=== PATIENT | male | born 1955 | race Caucasian/White ===

== ENCOUNTER 2016-08-03 11:51 | Emergency (ER) | payer SELFPAY ==
[~2016-08-03] VITALS: Ht 167.6 cm; Wt 79.7 kg
[~2016-08-03 11:51] MED LIST: METH10TA6 PO; MULTTAB58 PO
[2016-08-03 11:57] VITALS: TEMP 36.9; Ht 167.6 cm; Wt 79.7 kg
[2016-08-03] MEDS ORDERED: NAPR-1007 PO (12:52)
[2016-08-03] MEDS ORDERED: TRAMADOL HCL 50 MG TAB PO STA (13:15)
[2016-08-03 13:29] LABS: BASO % 0.2 %; BASO ABS # 0.02 K/uL (0-0.2); COMPLETE YES; EOS % 0.7 %; HEMATOCRIT 43.6 % (42-52); IG% 0.1 %; LYMPH % 19.5 %; LYMPH ABS # 1.77 K/uL (1.2-3.4); MEAN CELL VOLUME 85.7 fL (80-100); MEAN CORPUSCULAR HEMOGLOBIN 29.9 pg (25-34); MEAN CORPUSCULAR HGB CONC 34.9 g/dl (32-36); MEAN PLATELET VOLUME 9.8 fL (7.4-10.4); MONO % 8.3 %; NEUT % 71.2 %; PLATELET COUNT 240 K/uL (130-400); RED BLOOD COUNT 5.09 M/uL (4.7-6.1); WHITE BLOOD COUNT 9.06 K/uL (4.8-10.8)
[2016-08-03 13:37] LABS: ALT/SGPT 13 U/L (12-78); BLOOD UREA NITROGEN 15 mg/dl (7-18); BUN/CREATININE RATIO 13.3 (10-20); CALCIUM 8.8 mg/dl (8.5-10.1); CARBON DIOXIDE 29 mmol/L (21-32); CHLORIDE 105 mmol/L (98-107); GLUCOSE 100 mg/dl (70-99); POTASSIUM 4.5 mmol/L (3.5-5.1); SODIUM 141 mmol/L (136-145)
[2016-08-03 13:40] LABS: ALKALINE PHOSPHATASE 74 U/L (45-117); AST/SGOT 14 U/L (15-37); RHEUMATOID FACTOR < 10.0 U/mL (0-15)
[2016-08-03 14:09] LABS: LYME DISEASE AB IGG NEG (NEG)
[2016-08-03 14:10] LABS: LYME DISEASE AB IGM NEG (NEG)
[2016-08-03] MEDS ORDERED: ONDANSETRON INJ 2 MG/ML 2 ML VIAL IV STA (14:26)
[2016-08-03] MEDS ORDERED: MoRPHine SULFATE 4 MG/ML 1 ML CARP\\VIAL IV STA (14:26)
[2016-08-03] MEDS ORDERED: OXYC1TAB3 PO (15:22)
[2016-08-03 15:55] VITALS: BP 122/77; PULSE 66; O2SAT 93
--- NOTE | 2016-08-03 20:01 | EMERGENCY ROOM VISIT NOTE ---
History Report prepared by Chelseaibscottie: Mora Loya Under the Supervision of: Dr. Bharathi Brannon M.D. First contact with patient: 13:05 Chief Complaint: PAIN (GENERALIZED) Stated Complaint: SEVERE PAIN, DEEP MUSCLES AND/OR JOINTS History of Present Illness The patient is a 60 year old male who presents to the Emergency Room with complaints of generalized pain that has been worsening over the past 3-4 weeks. The patient notes that the pain seems to be located mostly around his major joints, including his shoulders, hips, and knees. He is having pain in the muscles around his joints rather than in the joints themselves. The pain is worse with any movement he makes, "I can hardly tie my shoes." Per patient's , there is a phan spot on his back that she is suspicious could be a bite of some sort. The patient has been out in a wooded area about 6 times throughout the winter. The patient denies any exercise prior to or since the onset of his symptoms. The patient has not been evaluated for his pain prior to today but is trying to get set up with [facility]. He took about 6 total Naproxen since 6AM this morning. There is no family history of rheumatoid arthritis. Denies chest pain, vomiting, diarrhea, urinary symptoms, or other complaints. He does not have any medical problems. Source of History: patient Onset: 3-4 weeks ago Position: other (global) Quality: other (muscular pain) Timing: worsening Associated Symptoms: No chest pain, No diarrhea, No urinary symptoms, No vomiting Review of Systems See HPI for pertinent positives & negatives. A total of 10 systems reviewed and were otherwise negative. Past Medical & Surgical Medical Problems: (1) No Known Active Medical Problems Family History Diabetes mellitus Social History Smoking Status: Never Smoker Alcohol Use: none Drug Use: none Marital Status: single Housing Status: lives alone Occupation Status: unemployed Current/Historical Medications Scheduled Multiple Vitamin (Multivitamin), 1 TAB PO DAILY Naproxen Sodium (Naproxen Sodium), 500 MG PO DAILY Scheduled PRN Oxycodone Ir (Roxicodone Ir), 5 MG PO Q4H PRN for Pain Allergies Coded Allergies: No Known Allergies (Verified , 08/03/16) Physical Exam Vital Signs Date Time Temp Pulse Resp B/P Pulse Ox O2 Delivery O2 Flow Rate FiO2 08/03/16 15:55 66 18 122/77 93 Room Air 08/03/16 13:28 76 16 129/88 95 Room Air 08/03/16 11:57 36.9 85 18 153/102 95 Room Air Physical Exam Constitutional: Vital signs reviewed. Eyes: Pupils are equal round reactive to light. Conjunctiva are noninjected. ENT: Pharynx is clear without erythema or exudate. Mucous membranes are moist. Neck supple without meningeal signs. Respiratory: Clear to auscultation bilaterally. Breath sounds are equal bilaterally. Cardiovascular: Regular rate and rhythm. No rubs or gallops. GI: Soft, nondistended and nontender. Bowel sounds are present. Musculoskeletal: No peripheral edema. No significant joint tenderness, redness , or swelling throughout the extremities. No midline tenderness to the thoracic or lumbosacral spine. Integumentary: No cyanosis. Subcentimeter grayish lesion to the left upper back , possible nevus. Neurological: The patient is awake and alert. No focal deficits. Psychiatric: Normal affect. Medical Decision & Procedures Laboratory Results 08/03/16 12:40 Red Blood Count 5.09, Mean Corpuscular Volume 85.7, Mean Corpuscular Hemoglobin 29.9, Mean Corpuscular Hemoglobin Concent 34.9, Mean Platelet Volume 9.8, Neutrophils (%) (Auto) 71.2, Lymphocytes (%) (Auto) 19.5, Monocytes (%) (Auto) 8.3, Eosinophils (%) (Auto) 0.7, Basophils (%) (Auto) 0.2, Neutrophils # (Auto) 6.45, Lymphocytes # (Auto) 1.77, Monocytes # (Auto) 0.75, Eosinophils # (Auto) 0.06, Basophils # (Auto) 0.02 08/03/16 12:40 Test 08/03/16 12:40 White Blood Count 9.06 K/uL (4.8-10.8) Red Blood Count 5.09 M/uL (4.7-6.1) Hemoglobin 15.2 g/dL (14.0-18.0) Hematocrit 43.6 % (42-52) Mean Corpuscular Volume 85.7 fL (80-100) Mean Corpuscular Hemoglobin 29.9 pg (25-34) Mean Corpuscular Hemoglobin Concent 34.9 g/dl (32-36) Platelet Count 240 K/uL (130-400) Mean Platelet Volume 9.8 fL (7.4-10.4) Neutrophils (%) (Auto) 71.2 % Lymphocytes (%) (Auto) 19.5 % Monocytes (%) (Auto) 8.3 % Eosinophils (%) (Auto) 0.7 % Basophils (%) (Auto) 0.2 % Neutrophils # (Auto) 6.45 K/uL (1.4-6.5) Lymphocytes # (Auto) 1.77 K/uL (1.2-3.4) Monocytes # (Auto) 0.75 K/uL (0.11-0.59) Eosinophils # (Auto) 0.06 K/uL (0-0.5) Basophils # (Auto) 0.02 K/uL (0-0.2) RDW Standard Deviation 40.4 fL (36.4-46.3) RDW Coefficient of Variation 12.9 % (11.5-14.5) Immature Granulocyte % (Auto) 0.1 % Immature Granulocyte # (Auto) 0.01 K/uL (0.00-0.02) Anion Gap 7.0 mmol/L (3-11) Est Creatinine Clear Calc Drug Dose 72.6 ml/min Estimated GFR () 85.3 Estimated GFR (Non- 73.6 BUN/Creatinine Ratio 13.3 (10-20) Calcium Level 8.8 mg/dl (8.5-10.1) Total Bilirubin 0.7 mg/dl (0.2-1) Direct Bilirubin 0.1 mg/dl (0-0.2) Aspartate Amino Transf (AST/SGOT) 14 U/L (15-37) Alanine Aminotransferase (ALT/SGPT) 13 U/L (12-78) Alkaline Phosphatase 74 U/L (45-117) Total Creatine Kinase 34 U/L (39-308) Total Protein 7.7 gm/dl (6.4-8.2) Albumin 3.5 gm/dl (3.4-5.0) Rheumatoid Factor < 10.0 U/mL (0-15) Lyme Disease IgG Antibody NEG (NEG) Lyme Disease IgM Antibody NEG (NEG) Laboratory results as reviewed by me. Medications Administered Medications (Trade) Dose Ordered Sig/Martinez Route Start Time Stop Time Status Last Admin Dose Admin Tramadol HCl (Ultram Tab) 50 mg NOW STAT PO 08/03/16 13:15 08/03/16 13:19 DC 08/03/16 13:27 50 MG Morphine Sulfate (MoRPHine SULFATE INJ) 4 mg NOW STAT IV 08/03/16 14:26 08/03/16 14:28 DC 08/03/16 14:43 4 MG Ondansetron HCl (Zofran Inj) 4 mg NOW STAT IV 08/03/16 14:26 08/03/16 14:28 DC 08/03/16 14:43 4 MG ED Course 1307: The patient was evaluated in room C11. A complete history and physical exam was performed. 1315: Ordered Ultram 50 mg PO. 1426: I reassessed the patient. He is not having any relief of his pain. We will try something else for his pain. He says that his pain is more in the muscles than the joints themselves. Case management is trying to arrange follow up for him sooner than he can be seen by [facility]. Ordered Zofran Inj 4 mg IV, Morphine Sulfate 4 mg IV. 1521: I reassessed the patient. He feels better now. The casework manager talked to him and will try to get an earlier appointment with [facility] and a referral to rheumatology. The patient will be discharged home. Medical Decision This is a 60-year-old male who presents with muscular and joint pain. Differential diagnosis includes fibromyalgia, myofascial pain syndrome, arthritis, Lyme disease, rhabdomyolysis. I did perform a limited focused review of portions of the patient's old chart on the electronic medical record. The patient has had no recent pertinent visits to this hospital. I did evaluate the patient as noted above. The patient is presenting with 3-4 weeks of muscular and joint pain. He states the pain is mostly over the muscles and not the joints themselves. His joints are not enlarged, hot or erythematous. IV access was established. I did treat patient with Ultram 50 mg. I did order and review the patient's blood work as noted in the electronic medical record. CPK is not elevated. Rheumatoid factor is negative. Lyme disease testing is negative. His white blood cell count is not elevated. I did reassess the patient. I did discuss his test results with him. He is still having pain and so was given morphine and Zofran IV. On reassessment he is feeling better. At this time the cause of his symptoms is unclear. I did recommend follow up with rheumatology. He does not have a primary care physician at this time and so I did have the casework manager talk to him and she will make arrangements for him to get an earlier appointment with [facility] and possibly a night time nanny on Thursday. The patient was given a short prescription for oxycodone. I did have a long discussion with him regarding oxycodone use and recommended against them using it for the most part due to the type of pain he is having and potential for addiction and dependency. He did understand my concerns and stated he will use it very sparingly. He was discharged in good condition. [place] Drug Monitoring Program Search Results: patient reviewed within database, no issues identified Impression Primary Impression: Muscle pain Additional Impression: Polyarthralgia Scribe Attestation The scribe's documentation has been prepared under my direct and personally reviewed by me in its entirety. I confirm that the note above accurately reflects all work, treatment, procedures, and medical decision making performed by me. Departure Information Dispostion Home / Self-Care Prescriptions Oxycodone Ir (Roxicodone Ir) 5 Mg Tab 5 MG PO Q4H Y for Pain, #20 TAB Prov: Bharathi Brannon M.D. 08/03/16 Referrals [facility] (PCP) Patient Instructions ED Muscle Aching, My [facility] Additional Instructions You have been examined and treated today on an emergency basis only. This is not a substitute for, or an effort to provide, complete comprehensive medical care. It is impossible to recognize and treat all injuries or illnesses in a single emergency department visit. It is therefore important that you follow up closely with [facility] and a night time nanny. Return for worsening symptoms or if you develop fever, vomiting, very dark urine, joint swelling or redness or any other concerning symptoms. Problem Qualifiers
== END 2016-08-03 16:21 | disposition home or self-care (01) ==
LOC: C.EDB 11:52 → C.EDC 16:21
DX: M79.1 Myalgia (principal); M25.50 Pain in unspecified joint; Z83.3 Family history of diabetes mellitus